=== PATIENT | female | born 1965 | race Caucasian/White ===

== ENCOUNTER → 2016-10-09 | Outpatient (CLI) | payer MEDICARE ==
[2016-10-09 09:34] LABS: Urine Bilirubin Negative (Negative); Urine Blood Negative /uL (Negative); Urine Color Yellow (Yellow); Urine Glucose Normal (Normal); Urine Ketone Negative (Negative); Urine Nitrite Negative (Negative); Urine RBC 3 /hpf (0 - 4); Urine Squamous Epithelial Cell FEW /hpf (<5); Urine Urobilinogen Normal (Negative); Urine pH 5.5 (5.0-8.0)
[2016-10-09 10:35] LABS: Albumin 3.8 g/dL (3.4-5.0); BUN/Creatinine Ratio 15.7; Bilirubin, Total 0.4 mg/dL (0.2-1.0); Calcium 9.1 mg/dL (8.5-10.1); Potassium 4.3 mmol/L (3.5-5.1); Total Protein 7.6 g/dL (6.4-8.2)
== END | disposition home or self-care (01) ==
LOC: LAB 06:34
PROVIDERS: ATTEND Internal Medicine
DX: Z00.00 Encounter for general adult medical examination without abnormal findings (principal)
CPT/HCPCS: 36415; 80053; 80061; 81001; 83036; 84443

== ENCOUNTER → 2017-04-23 | Outpatient (CLI) | payer MEDICARE | END | disposition home or self-care (01) | LOC: LAB 09:25 | PROVIDERS: ATTEND Internal Medicine | DX: R10.9 Unspecified abdominal pain (principal) | CPT/HCPCS: 82270 ==

== ENCOUNTER → 2018-05-13 | Outpatient (CLI) | payer MEDICARE ==
[2018-05-13 07:49] LABS: Urine Bacteria NONE SEEN /hpf (None Seen); Urine Blood Negative /uL (Negative); Urine Specific Gravity 1.001 (1.001-1.035); Urine WBC 1 /hpf (0 - 5)
[2018-05-13 08:06] LABS: Basophils # (auto) 0 uL; Basophils % (auto) 0.7 % (0.0-2.0); Eosinophils # (auto) 0.1 uL; Eosinophils % (auto) 1.6 % (0.0-7.0); Hematocrit 40.8 % (36.0-46.0); Hemoglobin 13.9 g/dL (12.2-16.2); Lymphocytes # (auto) 1.4 uL; Lymphocytes % (auto) 28.2 % (10.0-50.0); Mean Corpuscular Hemoglobin 30.7 pg (28.0-32.0); Mean Corpuscular Volume 90.3 fL (80.0-100.0); Monocytes # (auto) 0.3 uL; Monocytes % (auto) 6.5 % (0.0-12.0); Neutrophils # (auto) 3.1 uL; Platelet Count (auto) 222 10^3/uL (140-450); Red Blood Cells 4.52 10^6/uL (4.0-5.20); Red Cell Distribution Width 13.7 % (11.8-14.3)
[2018-05-13 08:29] LABS: Albumin 3.7 g/dL (3.4-5.0); BUN/Creatinine Ratio 12.7; Bilirubin, Total 0.5 mg/dL (0.2-1.0); Calcium 8.9 mg/dL (8.5-10.1); Potassium 4.2 mmol/L (3.5-5.1); Total Protein 7.4 g/dL (6.4-8.2)
== END | disposition home or self-care (01) ==
LOC: LAB 07:04
PROVIDERS: ATTEND Physician Assistant
DX: E78.5 Hyperlipidemia, unspecified (principal); E55.9 Vitamin D deficiency, unspecified; E66.01 Morbid (severe) obesity due to excess calories; N18.2 Chronic kidney disease, stage 2 (mild); E03.9 Hypothyroidism, unspecified; L40.9 Psoriasis, unspecified; Z79.899 Other long term (current) drug therapy
CPT/HCPCS: 36415; 80053; 80061; 81001; 82306; 83036; 84443; 85025

== ENCOUNTER → 2019-08-04 | Outpatient (CLI) | payer MEDICARE ==
[2019-08-04 07:57] LABS: Basophils # (auto) 0 uL; Basophils % (auto) 0.9 % (0.0-2.0); Eosinophils # (auto) 0.1 uL; Eosinophils % (auto) 1.9 % (0.0-7.0); Hematocrit 38.8 % (36.0-46.0); Hemoglobin 13.3 g/dL (12.2-16.2); Lymphocytes # (auto) 0.9 uL; Lymphocytes % (auto) 20.4 % (10.0-50.0); Mean Corpuscular Hemoglobin 29.7 pg (28.0-32.0); Mean Corpuscular Hgb Conc. 34.2 g/dL (32.0-36.0); Mean Corpuscular Volume 86.9 fL (80.0-100.0); Monocytes # (auto) 0.3 uL; Monocytes % (auto) 6.6 % (0.0-12.0); Neutrophils # (auto) 3.1 uL; Neutrophils % (auto) 70.2 % (37.0-80.0); Nucleated Red Blood Cells % 0.1 %; Platelet Count (auto) 236 10^3/uL (140-450); Red Blood Cells 4.46 10^6/uL (4.0-5.20); Red Cell Distribution Width 14.8 % (11.8-14.3); White Blood Cell 4.4 10^3/uL (4.4-10.8)
[2019-08-04 08:19] LABS: Albumin 3.4 g/dL (3.4-5.0); Calcium 8.6 mg/dL (8.5-10.1); Potassium 4.5 mmol/L (3.5-5.1)
[2019-08-04 08:24] LABS: BUN/Creatinine Ratio 16.9; Bilirubin, Total 0.3 mg/dL (0.2-1.0); Total Protein 7.1 g/dL (6.4-8.2)
== END | disposition home or self-care (01) ==
LOC: LAB 07:10
PROVIDERS: ATTEND Physician Assistant
DX: E55.9 Vitamin D deficiency, unspecified (principal); E03.9 Hypothyroidism, unspecified; E78.5 Hyperlipidemia, unspecified; E78.00 Pure hypercholesterolemia, unspecified; C54.9 Malignant neoplasm of corpus uteri, unspecified
CPT/HCPCS: 36415; 80053; 80061; 82306; 84443; 85025